=== PATIENT | male | born 1970 | race American Indian/Alaskan Native ===

== ENCOUNTER 2017-02-04 04:11 | Emergency (ER) | payer SELFPAY ==
[2017-02-04 04:28] VITALS: BP 114/73
[2017-02-04 05:29] LABS: Bilirubin,Urine NEG (Negative); Blood,Urine SM (Negative); Ketones,Urine NEG (Negative); Leukocyte Esterase,Urine NEG (Negative); Nitrite,Urine NEG (Negative); Protein,Urine <15 mg/dL mg/dL (Negative); Urobilinogen,Urine < 2.0 mg/dL (<2.0)
[2017-02-04 05:36] LABS: WBC,Urine < 1.0 /HPF (0.0-6.0)
[2017-02-04] MEDS ORDERED: XYLOCAINE 1% MPF 5 mL INFILTRATI ONE (07:45)
[2017-02-04] MEDS ORDERED: ROCEPHIN IM ONE (07:45)
[2017-02-04] MEDS ORDERED: ZITHROMAX PO ONE (07:45)
--- NOTE | 2017-02-04 07:51 | Emergency Department Report ---
ED Male HPI - General Chief complaint: Urogenital-Male Stated complaint: URINE PROBLEMS Time Seen by Provider: 02/04/17 07:33 Source: patient Mode of arrival: Ambulatory Limitations: No Limitations - History of Present Illness Initial comments: PT c/o "having too much fun in [place]" PT states he was out of town over a week ago and engaged in unprotected oral intercourse. PT states on Tuesday he noticed a small amount of dysuria. PT states this has worsened and he developed penile discharge. PT describes this as clear and thick. PT states when he urinates, the pain radiates up into his low back. MD Complaint: penile discharge, dysuria -: Gradual, days(s) Location: penis Severity scale (0 -10): 6 Quality: burning Consistency: intermittent Worsens with: urination new sexual partner discharge, dysuria, fever (subjective, felt warm ). denies: swelling, rash, blood in urine, nausea/vomiting - Related Data Allergies Allergy/AdvReac Type Severity Reaction Status Date / Time No Known Allergies Allergy Unverified 02/04/17 04:28 ED Review of Systems ROS: Stated complaint: URINE PROBLEMS Other details as noted in HPI Comment: All other systems reviewed and negative Constitutional: fever (subjective, "felt warm"). denies: chills Respiratory: denies: cough Cardiovascular: denies: chest pain, edema Gastrointestinal: denies: abdominal pain, nausea, vomiting Genitourinary: as per HPI, dysuria, discharge. denies: testicular pain, testicular mass Musculoskeletal: back pain ED Past Medical Hx - Past Medical History Previous Medical History?: No - Surgical History Past Surgical History?: No - Social History Smoking Status: Never Smoker Substance Use Type: Alcohol ED Physical Exam - General Limitations: No Limitations General appearance: alert, in no apparent distress - Head Head exam: Present: atraumatic, normocephalic, normal inspection - Eye Eye exam: Present: normal appearance, PERRL, EOMI. Absent: conjunctival injection - ENT ENT exam: Present: normal exam, mucous membranes moist, normal external ear exam - Neck Neck exam: Present: normal inspection, full ROM - Respiratory Respiratory exam: Present: normal lung sounds bilaterally. Absent: respiratory distress, wheezes - Cardiovascular Cardiovascular Exam: Present: regular rate, normal rhythm, normal heart sounds - GI/Abdominal GI/Abdominal exam: Present: soft. Absent: tenderness, guarding, rebound - Extremities Exam Extremities exam: Present: normal inspection, full ROM - Back Exam Back exam: Present: normal inspection, full ROM. Absent: tenderness, CVA tenderness (R), CVA tenderness (L), muscle spasm, paraspinal tenderness, vertebral tenderness - Neurological Exam Neurological exam: Present: alert, oriented X3, normal gait - Psychiatric Psychiatric exam: Present: normal affect, normal mood - Skin Skin exam: Present: warm, dry, intact, normal color ED Course Vital Signs 02/04/17 04:25 Temperature 98.0 F Pulse Rate 81 Respiratory 18 Rate Blood Pressure 114/73 O2 Sat by Pulse 98 Oximetry - Reevaluation(s) Reevaluation #1: 02/04/17 07:50 PT aware of UA results. PT aware of plan of care. With pt's history and symptoms, will treat empirically for gc/ct. PT advised to abstain from sexual intercourse x 1 week and to follow up with PCP in 3-5 days for full Panel STD testing. PT has no questions at this time. - Pulse Oximetry Interpretation Digit-Finger Initial Pulse Oximetry Readin Actions Taken: none ED Medical Decision Making - Differential Diagnosis std, uti Critical Care Time: No Critical care attestation.: If time is entered above; I have spent that time in minutes in the direct care of this critically ill patient, excluding procedure time. ED Disposition Clinical Impression: Penile discharge, Dysuria, Risky sexual behavior Disposition: DC-01 TO HOME OR SELFCARE Is pt being admited?: No Does the pt Need Aspirin: No Condition: Stable Instructions: Sexually Transmitted Diseases (ED), Safe Sex (ED) Additional Instructions: Culture results take 3-5 days If your cultures are positive, someone from the hospital should call you. However, I suggest that you go to medical records next week and request a copy of your lab work. Follow up with PCP in 3-5 days for full panel STD testing Your partner (s) may need STD testing/ treatment No sex for the next 7 days Return to ED if worsening or concerns Referrals: PRIMARY CARE, [Primary Care Provider] - 3-5 Days DEIRDRE LAW MD [Staff Physician] - 3-5 Days [facility] [Outside] - 3-5 Days [facility] [Outside] - 3-5 Days Forms: Work/School Release Form(ED) Time of Disposition: 07:52
== END 2017-02-04 08:06 | disposition home or self-care (01) ==
LOC: EDSEX → ED 04:11
DX: R30.0 Dysuria (principal); R36.9 Urethral discharge, unspecified
CPT/HCPCS: 81001; 96372; 99283; J0696